=== PATIENT | female | born 1970 | race African-American/Black ===

== ENCOUNTER 2018-11-07 12:54 | Emergency (ER) | payer MEDICAID ==
[~2018-11-07] VITALS: Ht 175.3 cm; Wt 100.0 kg
[~2018-11-07 12:54] MED LIST: ACET-3161 PO; FERR-63 PO; MUTI VITAMIN PO
[2018-11-07] MEDS ORDERED: ACETAMINOPHEN WITH CODEINE 300/30MG TABLET PO ONE (14:30)
[2018-11-07] MEDS ORDERED: KETOROLAC 60MG/2ML VIAL IM ONE (14:30)
[2018-11-07 14:42] VITALS: BP 145/68
== END 2018-11-07 14:42 | disposition home or self-care (01) ==
LOC: ER 12:54
DX: S00.83XA Contusion of other part of head, initial encounter (principal); S29.012A Strain of muscle and tendon of back wall of thorax, initial encounter; W01.0XXA Fall on same level from slipping, tripping and stumbling without subsequent striking against object, initial encounter; Y93.89 Activity, other specified; Y92.512 Supermarket, store or market as the place of occurrence of the external cause
CPT/HCPCS: 81025; 96372; 99283; J1885